=== PATIENT | female | born 1990 | race Caucasian/White ===

== ENCOUNTER 2016-12-26 12:12 | Emergency (ER) | payer OTHER ==
[2016-12-26 12:35] VITALS: BP 119/87
[2016-12-26] MEDS ORDERED: Ondansetron ODT TAB* 4 MG PO ONE (12:53)
[2016-12-26] MEDS ORDERED: Ketorolac INJ* 60 MG/2 ML VIAL IM ONE (12:53)
--- NOTE | 2016-12-26 13:22 | UC ---
Headache HPI - HPI Summary HPI Summary: HEADACHE X 1 DAY HX OF MIGRAINE , + NAUSEA AND VOMITING SINCE THIS MORNING, TOOK MAXAULT WITH NO IMPROVEMENT. - History Of Current Complaint Chief Complaint: UCHeadache Stated Complaint: MIGRAINE VOMITING Time Seen by Provider: 12/26/16 12:48 Hx Obtained From: Patient Hx Last Menstrual Period: 12/18/16 ?: No Onset/Duration: Gradual Onset, Lasting Days - 1, Still Present Onset Of Symptoms: Gradual Initially Headache Was: Severe Timing: Days - 1 Character: Throbbing, Migraine Location of Headache: Diffuse Allevating Factors: Rest Associated Signs And Symptoms: Positive: Nausea, Vomiting. Negative: Dizziness , Seizure, Sinus Pressure, Fever, Neck Pain, Neck Stiffness, Decreased LOC, Visual Changes, Other (Noted In Comments) - Allergies/Home Medications Allergies/Adverse Reactions: Allergies Allergy/AdvReac Type Severity Reaction Status Date / Time steroid AdvReac See Comment Uncoded 12/26/16 12:29 PMH/Surg Hx/FS Hx/Imm Hx Neurological History: Migraine Other History Of: Negative For: HIV, Hepatitis B, Hepatitis C, Anticoagulant Therapy - Surgical History Surgical History: None - Family History Known Family History: Positive: Cardiac Disease, Hypertension - Social History Alcohol Use: None Alcohol Amount: "monthly" Substance Use Type: None Smoking Status (MU): Never Smoked Tobacco Review of Systems Constitutional: Negative Skin: Negative Eyes: Negative ENT: Negative Respiratory: Negative Cardiovascular: Negative Neurological: Headache All Other Systems Reviewed And Are Negative: Yes Physical Exam Triage Information Reviewed: Yes Appearance: Well-Appearing, No Pain Distress, Well-Nourished Vital Signs: Initial Vital Signs Temp 96.9 F 12/26/16 12:31 Pulse 91 12/26/16 12:31 Resp 14 12/26/16 12:31 BP 119/87 12/26/16 12:31 Pulse Ox 98 12/26/16 12:31 Vital Signs Reviewed: Yes Eyes: Positive: Conjunctiva Clear ENT: Positive: Normal ENT inspection, Hearing grossly normal, Pharynx normal Neck exam: Normal Neck: Positive: Supple, Nontender, No Lymphadenopathy Respiratory: Positive: Chest non-tender, Lungs clear, Normal breath sounds Cardiovascular: Positive: RRR, No Murmur, Pulses Normal Abdominal Exam: Normal Musculoskeletal Exam: Normal Neurological Exam: Normal Skin Exam: Normal UC Physical Exam Vital Signs On Initial Exam: Initial Vitals Temp Pulse Resp BP Pulse Ox 96.9 F 91 14 119/87 98 12/26/16 12:31 12/26/16 12:31 12/26/16 12:31 12/26/16 12:31 12/26/16 12:31 - Neurological Exam Neurological: Normal, Sensory/Motor Intact, Alert, Oriented to Person Place, Time, CN Intact II-III, Reflexes Intact, Normal Gait, Speech Normal Headache Course/Dx - Differential Dx/Diagnosis Provider Diagnoses: HEADACHE Discharge - Discharge Plan Condition: Stable Disposition: HOME Prescriptions: Ondansetron [Zofran 8 MG Odt] 8 mg PO Q8H PRN #6 tab PRN Reason: Nausea/Vomiting Patient Education Materials: Acute Headache (ED) Forms: *Work Release Referrals: Preet Lazcano MD [Primary Care Provider] - If Needed
== END 2016-12-26 13:51 | disposition home or self-care (01) ==
LOC: UCCORT 12:12
DX: R51 Headache (principal); R11.11 Vomiting without nausea
CPT/HCPCS: 96372; 99212; A9270-GY; G0463; J1885

== ENCOUNTER 2017-08-28 09:02 | Emergency (ER) | payer SELFPAY ==
[2017-08-28] MEDS ORDERED: Ondansetron ODT TAB* 4 MG PO ONE (09:29)
--- NOTE | 2017-08-28 09:51 | ED ---
Headache - HPI Summary HPI Summary: 26 yr old female with the complaint of headache. The patient states she has a history of migraine headaches. She woke up this morning with a headache and nausea that is very typical for her migraine. Headache is moderate, frontal location. Associated with nausea and vomiting. She states she was not able to keep down her medication for BP or for her migraine this morning. She came here for management of her nausea. She has no fever, no change in vision, speech, hearing, swallowing, denies focal weakness, numbness. - History Of Current Complaint Chief Complaint: UCGeneralIllness Stated Complaint: HEADACHE VOMITING Time Seen by Provider: 08/28/17 09:27 Hx Last Menstrual Period: 08/28/17 - Allergies/Home Medications Allergies/Adverse Reactions: Allergies Allergy/AdvReac Type Severity Reaction Status Date / Time steroid AdvReac See Comment Uncoded 08/28/17 09:17 Home Medications: Home Medications Norgestimate-Ethinyl Estradiol [Sprintec 28 Day Tablet] 1 tab QPM 08/28/17 [ History Confirmed 08/28/17] Rizatriptan Benzoate [[employer]] 5 mg TID PRN 08/28/17 [History Confirmed 08/28] PMH/Surg Hx/FS Hx/Imm Hx Endocrine/Hematology History: Denies: Hx Anticoagulant Therapy, Hx Diabetes, Hx Thyroid Disease Cardiovascular History: Reports: Hx Hypertension Denies: Hx Congestive Heart Failure, Hx Deep Vein Thrombosis, Hx Myocardial Infarction, Hx Pacemaker/ICD Respiratory History: Denies: Hx Asthma, Hx Chronic Obstructive Pulmonary Disease (COPD), Hx Lung Cancer, Hx Pneumonia, Hx Pulmonary Embolism GI History: Denies: Hx Gall Bladder Disease, Hx Gastrointestinal Bleed, Hx Ulcer, Hx Urosepsis History: Denies: Hx Kidney Stones, Hx Renal Disease Neurological History: Reports: Hx Migraine Denies: Hx Dementia, Hx Seizures, Hx Transient Ischemic Attacks (TIA) Psychiatric History: Reports: Hx Anxiety, Hx Depression Infectious Disease History: No Infectious Disease History: Denies: Hx Clostridium Difficile, Hx Hepatitis, Hx Human Immunodeficiency Virus (HIV), Hx of Known/Suspected MRSA, Hx Shingles, Hx Tuberculosis, Hx Known/ Suspected VRE, Hx Known/Suspected VRSA, History Other Infectious Disease, Traveled Outside the [place] in Last 30 Days - Family History Known Family History: Positive: Cardiac Disease, Hypertension - Social History Alcohol Use: None Alcohol Amount: "monthly" Substance Use Type: Reports: None Smoking Status (MU): Never Smoked Tobacco Review of Systems Constitutional: Negative Negative: Photophobia, Diplopia Positive: Vomiting, Nausea Positive: Headache. Negative: Weakness, Paresthesia, Numbness, Syncope, Slurred Speech All Other Systems Reviewed And Are Negative: Yes Physical Exam Triage Information Reviewed: Yes Vital Signs On Initial Exam: Initial Vitals Temp Pulse Resp BP Pulse Ox 96.2 F 99 18 142/104 100 08/28/17 09:18 08/28/17 09:18 08/28/17 09:18 08/28/17 09:18 08/28/17 09:18 Vital Signs Reviewed: Yes Appearance: Positive: Ill-Appearing Skin: Positive: Warm, Skin Color Reflects Adequate Perfusion Head/Face: Positive: Normal Head/Face Inspection Eyes: Positive: EOMI ENT: Positive: Normal ENT inspection Neck: Positive: Nontender, No Lymphadenopathy Respiratory/Lung Sounds: Positive: Clear to Auscultation, Breath Sounds Present Cardiovascular: Positive: RRR. Negative: Murmur Abdomen Description: Positive: Nontender Musculoskeletal: Positive: Strength/ROM Intact Neurological: Positive: Sensory/Motor Intact, Alert, Oriented to Person Place, Time, CN Intact II-III, Normal Gait, Speech Normal Psychiatric: Positive: Normal - Cameron Coma Scale Best Eye Response: 4 - Spontaneous Best Motor Response: 6 - Obeys Commands Best Verbal Response: 5 - Oriented Coma Scale Total: 15 Diagnostics - Vital Signs Vital Signs Temp Pulse Resp BP Pulse Ox 08/28/17 09:18 96.2 F 99 18 142/104 100 - Laboratory Lab Statement: Any lab studies that have been ordered have been reviewed, and results considered in the medical decision making process. Re-Evaluation - Re-Evaluation First Eval Re-Evaluation Time: 10:12 Change: Improved Comment: nausea improving. She asks for IM shot of toradol. Second Eval Re-Evaluation Time: 10:36 Change: Improved Comment: She feels significantly better and would like to go home now. Headache Course/Dx - Course Course Of Treatment: 26 yr old with migraine headache. DC home. FU with PMD. She will take her meds when she gets home for BP. - Diagnoses Provider Diagnoses: Hypertension, Migraine Discharge - Sign-Out/Discharge Documenting (check all that apply): Discharge/Admit/Transfer - Discharge Plan Condition: Good Disposition: HOME Patient Education Materials: Hypertension (ED), Migraine Headache (ED) Referrals: Preet Lazcano MD [Primary Care Provider] - 2 Days - Billing Disposition and Condition Condition: GOOD Disposition: HOME
[2017-08-28] MEDS ORDERED: Ketorolac INJ* 30 MG/ML 1 ML VIAL IM ONE ×2 (09:59→10:07)
[2017-08-28] MEDS ORDERED: PROCHLORPERAZINE INJ 5 MG/ML 2 ML VIAL IV ONE (10:01)
[2017-08-28] MEDS ORDERED: Ketorolac INJ* 30 MG/ML 1 ML VIAL IV PUSH ONE (10:02)
[2017-08-28] MEDS ORDERED: Ketorolac INJ* 30 MG/ML 1 ML VIAL ONE (10:10)
[2017-08-28 10:44] VITALS: BP 126/83
== END 2017-08-28 10:48 | disposition home or self-care (01) ==
LOC: UCCORT 09:02
DX: I10 Essential (primary) hypertension (principal); G43.909 Migraine, unspecified, not intractable, without status migrainosus; Z88.8 Allergy status to other drugs, medicaments and biological substances
CPT/HCPCS: 96372; 99212; A9270-GY; G0463; J1885